=== PATIENT | male | born 1960 | race Caucasian/White ===

== ENCOUNTER 2018-06-22 09:02 | Outpatient (CLI) | payer OTHER | END 2018-06-22 09:12 | disposition home or self-care (01) | LOC: RAD 09:02 | DX: Z00.00 Encounter for general adult medical examination without abnormal findings (principal) ==

== ENCOUNTER 2021-01-17 10:55 | Outpatient (CLI) | payer OTHER | END 2021-01-17 10:59 | disposition home or self-care (01) | LOC: RAD 10:55 | PROVIDERS: ATTEND Internal Medicine | DX: Z76.89 Persons encountering health services in other specified circumstances (principal) ==